=== PATIENT | male | born 1995 | race Caucasian/White ===

== ENCOUNTER 2019-02-18 14:21 | Day surgery (SDC) | payer OTHER ==
[~2019-02-18 14:21] MED LIST: CEFAZOLIN 2 GM/50 ML (PMX) 50 ML IVPB
[2019-02-18] MEDS ORDERED: BUPIVACAINE 0.5% (SDV) 30 ML INJ (14:42)
[2019-02-18] MEDS: LACTATED RINGER'S 1,000 ML IV (14:42)
[2019-02-18] MEDS ORDERED: PROPOFOL 20 ML (15:58)
[2019-02-18] MEDS ORDERED: MIDAZOLAM 1 MG/ML 2 ML INJ (15:58)
[2019-02-18] MEDS ORDERED: FENTAnyl 50 MCG/ML VIAL (15:58)
[2019-02-18] MEDS ORDERED: POLYMYXIN/BACITRACIN 1L IRRIG (16:05)
[2019-02-18] MEDS ORDERED: CEFAZOLIN 1 GM INJ (16:31)
[2019-02-18] MEDS ORDERED: KETOROLAC 30 MG INJ (16:32)
[2019-02-18] MEDS ORDERED: ONDANSETRON 4 MG INJ (16:32)
[2019-02-18] MEDS ORDERED: METOCLOPRAMIDE 10 MG INJ (16:32)
[2019-02-18] MEDS ORDERED: DEXAMETHASONE 4 MG/ML 5 ML INJ (16:32)
[2019-02-18] MEDS: BUPIVACAINE 0.25% (MPF) 30 ML INJ (17:01)
[2019-02-18] MEDS: POLYMYXIN/BACITRACIN 1L IRRIG (17:01)
[2019-02-18] MEDS ORDERED: EPHEDrine 25 MG/5 ML SYG (17:05)
[2019-02-18] MEDS: HYDROmorphONE 1 MG/5 ML IV SYRINGE IV ×2 (17:28→17:37)
[2019-02-18] MEDS ORDERED: METOCLOPRAMIDE 10 MG INJ IV (17:30)
[2019-02-18] MEDS ORDERED: EPHEDrine 25 MG/5 ML SYG IV (17:30)
[2019-02-18] MEDS ORDERED: OXYCODONE/ACETAMINOPHEN (5/325) TAB PO ×2 (17:30)
[2019-02-18] MEDS ORDERED: ONDANSETRON 4 MG INJ IV (17:30)
[2019-02-18] MEDS ORDERED: FENTAnyl 50 MCG/ML VIAL IV ×2 (17:30)
[2019-02-18] MEDS ORDERED: HYDROmorphONE 1 MG/5 ML IV SYRINGE IV (17:30)
[2019-02-18] MEDS: FENTAnyl 50 MCG/ML VIAL IV (17:57)
== END 2019-02-18 18:45 | disposition home or self-care (01) ==
LOC: SDS 14:21
DX: S66.320A Laceration of extensor muscle, fascia and tendon of right index finger at wrist and hand level, initial encounter (principal); M00.841 Arthritis due to other bacteria, right hand; Y04.1XXA Assault by human bite, initial encounter
CPT/HCPCS: 26418